=== PATIENT | male | born 1970 | race Caucasian/White ===

== ENCOUNTER 2021-10-18 14:41 | Inpatient (IN) | payer OTHER ==
[~2021-10-18] VITALS: Ht 182.9 cm; Wt 84.9 kg
[2021-10-18 16:25] LABS: BASOPHILS % (AUTO) 0.5 % (0.0-2.0); EOSINOPHILS % (AUTO) 1.2 % (1.0-6.0); HEMATOCRIT 41.6 % (41-53); HEMOGLOBIN 14.2 g/dL (13.5-17.5); LYMPHOCYTES # (AUTO) 1.5 K/uL (1.0-4.8); LYMPHOCYTES % (AUTO) 20.8 % (22.0-44.0); MEAN CORPUSCULAR HEMOGLOBIN 31.3 pg (26.0-34.0); MEAN CORPUSCULAR HGB CONC 34.2 G/dL (31.0-37.0); MEAN CORPUSCULAR VOLUME 91 fL (80-100); MONOCYTES # (AUTO) 0.7 K/uL (0.1-1.0); MONOCYTES % (AUTO) 9.2 % (2.0-9.0); NEUTROPHILS # (AUTO) 4.8 K/uL (1.8-7.7); NEUTROPHILS % (AUTO) 68.3 % (40.0-70.0); PLATELET COUNT (AUTO) 147 K/uL (150-450); RED BLOOD CELL COUNT(AUTO) 4.55 MIL/uL (4.50-5.90); RED CELL DISTRIBUTION WIDTH 13.8 % (11.5-14.5)
[2021-10-18 16:36] LABS: ANION GAP 7 mmol/L (8-16); CALCIUM, TOTAL 8.9 mg/dL (8.8-10.5); CARBON DIOXIDE 30 mmol/L (22-29); CHLORIDE 105 mmol/L (98-107); CREATININE 0.96 mg/dL (0.60-1.30); GLOMERULAR FILTR. RATE CALC > 60 mL/min (>60); GLUCOSE,RANDOM 175 mg/dL (70-110); SODIUM SERUM 142 mmol/L (136-145); UREA NITROGEN, BLOOD 13 mg/dL (7-18)
[2021-10-18 16:42] LABS: ALANINE AMINOTRANSFERASE 46 U/L (12-78); ALBUMIN 3.8 g/dL (3.4-5.0); ALKALINE PHOSPHATASE 158 U/L (46-116); ASPARTATE AMINOTRANSFERASE 42 U/L (15-37); BILIRUBIN,TOTAL 1.3 mg/dL (0.1-1.0); TOTAL PROTEIN, SERUM 7.5 g/dL (6.4-8.2)
[2021-10-18 17:34] LABS: COVID AG,FIA SOURCE NASOPHARYNGEAL
[2021-10-18 17:38] LABS: AMPHET/METH SCREEN,URINE POSITIVE (NEGATIVE); BARBITURATE SCREEN, URINE NEGATIVE (NEGATIVE); BENZODIAZEPINES SCREEN,URINE NEGATIVE (NEGATIVE); CANNABINOID SCREEN,URINE NEGATIVE (NEGATIVE); COCAINE SCREEN,URINE NEGATIVE (NEGATIVE); METHADONE SCREEN, URINE NEGATIVE (NEGATIVE); OPIATE SCREEN,URINE NEGATIVE (NEGATIVE)
[2021-10-18 17:44] LABS: APPEARANCE,URINE CLEAR (CLEAR); BILIRUBIN,URINE NEGATIVE (NEGATIVE); GLUCOSE, URINE (UA) NEGATIVE (NEGATIVE); KETONES,URINE TRACE mg/dL (NEGATIVE); LEUKOCYTE ESTERASE ,URINE NEGATIVE (NEGATIVE); NITRATE,URINE NEGATIVE (NEGATIVE); OCCULT BLOOD,URINE NEGATIVE (NEGATIVE); PROTEIN,URINE NEGATIVE (NEGATIVE)
[2021-10-18 17:47] LABS: PHENCYCLIDINE SCREEN,URINE NEGATIVE (NEGATIVE)
[2021-10-18 22:00] VITALS: BP 134/91
[2021-10-18] MEDS ORDERED: LOPERAMIDE HCL 2 MG/15 ML SUSPENSION UDCUP PO PRN (22:45)
[2021-10-18] MEDS ORDERED: MAG HYDROX/AL HYDROX/SIMETH ES 30 ML SUSPENSION UDCUP PO PRN (22:45)
[2021-10-18] MEDS ORDERED: DEXTROSE 50%-WATER 25 GM/50 ML SYRINGE IVP PRN (22:45)
[2021-10-18] MEDS ORDERED: HydrOXYzine PAMOATE 50 MG CAPSULE PO PRN (22:45)
[2021-10-18] MEDS ORDERED: CloNIDine HCL 0.1 MG TABLET PO PRN (22:45)
[2021-10-18] MEDS ORDERED: PROMETHAZINE HCL 25 MG TABLET PO PRN (22:45)
[2021-10-18] MEDS ORDERED: DICYCLOMINE HCL 10 MG CAPSULE PO PRN (22:45)
[2021-10-18] MEDS ORDERED: BACLOFEN 10 MG TABLET PO PRN (22:45)
[2021-10-18] MEDS ORDERED: INSULIN LISPRO 100 UNITS/ML SQ PRN (22:45)
[2021-10-18] MEDS ORDERED: TraZODone HCL 50 MG TABLET PO PRN (22:45)
[2021-10-18] MEDS ORDERED: IBUPROFEN 600 MG TABLET PO PRN (22:45)
[2021-10-18] MEDS ORDERED: ACETAMINOPHEN 325 MG TABLET PO PRN (22:45)
[2021-10-18] MEDS: SODIUM CHLORIDE 0.45% 1,000 ML IV SCH (22:46)
[2021-10-18 23:00] VITALS: BP 140/83
[2021-10-19] VITALS: BP 138/90
[2021-10-19 00:46] LABS: GLUCOMETER DEV NAME(LOC) 6N.2; GLUCOSE,POINT OF CARE 153 MG/DL (70-110)
[2021-10-19 01:00] VITALS: BP 136/88
[2021-10-19 02:00] VITALS: BP 142/91
[2021-10-19 05:20] VITALS: BP 141/88
[2021-10-19 07:55] LABS: GLUCOMETER DEV NAME(LOC) 6N.2; GLUCOSE,POINT OF CARE 119 MG/DL (70-110)
[2021-10-19 08:01] VITALS: BP 150/85
[2021-10-19] MEDS: SODIUM CHLORIDE 0.45% 1,000 ML IV SCH (11:16)
[2021-10-19 12:37] LABS: GLUCOMETER DEV NAME(LOC) 6N.1; GLUCOSE,POINT OF CARE 142 MG/DL (70-110)
== END 2021-10-19 13:20 | DRG 897 ==
LOC: EMS 14:45 → 6S 22:05
PROVIDERS: ADMIT Hospitalist; ATTEND Hospitalist
DX: F15.10 Other stimulant abuse, uncomplicated (principal); Z20.822 Contact with and (suspected) exposure to COVID-19; E11.9 Type 2 diabetes mellitus without complications; F17.210 Nicotine dependence, cigarettes, uncomplicated; Z71.6 Tobacco abuse counseling
CPT/HCPCS: 80053; 81003; 82962; 85025; 99285; G0480